=== PATIENT | male | born 1995 | race Caucasian/White ===

== ENCOUNTER 2017-08-17 14:14 | Emergency (ER) | payer SELFPAY ==
[2017-08-17] MEDS ORDERED: OXYCODONE-ACETAMINOPHEN 5-325 MG TABLET PO ONE (14:55)
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
[2017-08-17 16:26] VITALS: BP 144/79
== END 2017-08-17 16:35 | disposition home or self-care (01) ==
LOC: ER 14:14
DX: S60.221A Contusion of right hand, initial encounter (principal); V09.9XXA Pedestrian injured in unspecified transport accident, initial encounter; Y93.89 Activity, other specified; M25.531 Pain in right wrist; M79.641 Pain in right hand; F17.200 Nicotine dependence, unspecified, uncomplicated
CPT/HCPCS: 99283